=== PATIENT | female | born 2000 | race Caucasian/White ===

== ENCOUNTER 2021-04-26 10:42 | Emergency (ER) | payer OTHER, SELFPAY ==
--- NOTE | ~2021-04-26 | XR_ITS ---
EXAMINATION: XR hand RT min 3V, XR wrist RT min 3V DATE: 04/26/2021 11:46 INDICATION: Hyperextension injury to the right hand and wrist 3 days prior, now with difficulty gripp ing TECHNIQUE: 1. Posteroanterior, ulnar deviation, oblique, and lateral views of the right wrist were obtained. 2. Dorsal palmar, oblique and lateral views of the right hand were obtained. COMPARISON: None. FINDINGS: Alignment of the right hand and wrist is normal. No fracture identified. Joint spaces are normal. No focal soft tissue swelling. IMPRESSION: 1. Negative right hand and wrist radiographs. Reviewed, dictated and finalized at location H. [employer] IMPRESSION: 1. Negative right hand and wrist radiographs.
[2021-04-26 11:00] VITALS: BP 126/80; PULSE 72; RESP 16; TEMP 36.7; O2SAT 100
[2021-04-26 11:32] VITALS: BP 126/80; PULSE 72; RESP 16; TEMP 36.7; O2SAT 100
--- NOTE | 2021-04-26 12:05 | ED.UPPEXIN ---
HPI - Extremity Injury (Upper) General Chief Complaint: Extremity Injury, Upper Stated Complaint: right wrist injury Source: patient and RN notes reviewed Mode of arrival: ambulatory History of Present Illness HPI narrative: This is a 20-year-old female that presented to urgent care today with complaints of right wrist and hand pain. According to patient while she was at work on Monday she lifted an air Fryer which snapped her wrist backwards since then she has been having pain to the right wrist she has applied ice and use ibuprofen for relief patient notes that her condition has not improved. The patient denies SOB, CP, palpitation, extremity numbness, lightheadedness, dizziness, no neurovascular deficiency, pedal pulses present, capillary refill within normal limits constipation, diarrhea, chills, or fever. Related Data Allergies Allergy/AdvReac Type Severity Reaction Status Date / Time No Known Allergies Allergy Verified 04/26/21 11:32 Review of Systems Review of Systems: A 14 organ system Review of Systems was performed and pertinent positives included in the HPI, otherwise remaining ROS is negative. [facility] Family History Family History (Updated 04/26/21 @ 12:13 by DALTON Khan) Other Family history non-contributory Social History Social History Smoking status: Never smoker Alcohol intake: never Exam Narrative: GENERAL: This is a well-nourished, well-developed patient, in no apparent distress. HEAD: normocephalic, atraumatic. EYES: PERRL. Sclera clear/white. Vision is grossly intact. EARS: External ears normal, auditory canals clear and without drainage, TMs normal without perforation. Hearing grossly intact. NOSE: External nose normal with no obvious nasal discharge, nares without redness, no rhinorrhea. THROAT: Mucous membranes moist, posterior pharynx clear. NECK: Neck supple, non-tender without lymphadenopathy, masses or thyromegaly. CARDIOVASCULAR: Regular rate and rhythm without murmurs, gallops, or rubs. RESPIRATORY: Clear to auscultation. Breath sounds equal bilaterally. No wheezes, rales, or rhonchi. GASTROINTESTINAL: Abdomen soft, non-tender, nondistended. Bowel sounds are active. No hepato-splenomegaly, or palpable masses. No guarding. SKIN: warm, intact with no suspicious lesions or rash, good texture and turgor. NEURO: awake, alert, and oriented to person, place and time. There were no obvious focal neurologic abnormalities. Steady gait EXTREMITIES: Pain with gripping of the right hand tenderness with palpation to the right wrist bilateral and thumb no edema. No calf tenderness. Negative Homans sign bilaterally. BACK: Nontender without deformity or crepitance. No flank tenderness. Course Course Emergency Course: Patient will discharge home with Flexeril and ibuprofen for sprain Vital Signs Vital signs: Vital Signs Temperature 98.0 F 04/26/21 11:00 Pulse Rate 72 04/26/21 11:00 Respiratory Rate 16 04/26/21 11:00 Blood Pressure 126/80 04/26/21 11:00 Pulse Oximetry 100 04/26/21 11:00 Temperature 98.0 F 04/26/21 11:32 Pulse Rate 72 04/26/21 11:32 Respiratory Rate 16 04/26/21 11:32 Blood Pressure 126/80 04/26/21 11:32 Pulse Oximetry 100 04/26/21 11:32 MDM - Extremity Injury (Upper) Differential Diagnosis Differential diagnosis: Likely sprain and strain of wrist, fracture of wrist, dislocation of finger and fracture of hand Discharge Plan Discharge Clinical Impression: Sprain and strain of wrist Patient Disposition: Home, Self-Care Condition: Stable Instructions: Antibiotic Form, Wrist Sprain (ED) Additional Instructions: Ice to the area 20-30 minutes 4-6 times a day Elevate above heart Elastic wrap or orthopedic splint as directed for comfort for the next 5-7 days Crutches as directed if needed Tylenol for lesser pain Ibuprofen regularly for the next 2-3 days for
== END 2021-04-26 12:13 | disposition home or self-care (01) ==
PROVIDERS: Emergency Provider Nurse Practitioner
DX: S63.501A Unspecified sprain of right wrist, initial encounter (principal); S66.911A Strain of unspecified muscle, fascia and tendon at wrist and hand level, right hand, initial encounter; X50.0XXA Overexertion from strenuous movement or load, initial encounter; Y99.0 Civilian activity done for income or pay
CPT/HCPCS: 73110; 73130; 99213; G0463